=== PATIENT | female | born 1955 | race Caucasian/White ===

== ENCOUNTER 2022-12-22 08:51 | Emergency (ER) | payer OTHER, BC ==
[2022-12-22 09:21] VITALS: BMI 33.5
[2022-12-22] MEDS ORDERED: ACETAMINOPHEN 1000 MG/100 ML BAG IVPB ONE (09:57)
[2022-12-22 09:59] LABS: CALCIUM OXALATE CRYSTALS MODERATE /hpf (NONE SEEN); EPITHELIAL CELLS FEW /hpf
[2022-12-22] MEDS ORDERED: ACETAMINOPHEN INJECTION 100 ML IVPB ONE (10:00)
[2022-12-22 10:14] LABS: HEMOGLOBIN 14.3 G/dL (10.7-15.3); MEAN PLT VOLUME 9.2 fl (7.5-11.1); PLATELET COUNT 350.2 10^3/uL (134-434); RBC 4.62 10^6/uL (3.60-5.2); RDW 13.9 % (11.6-15.6); WHITE BLOOD COUNT 7.8 10^3/uL (4.0-10.8)
[2022-12-22 10:18] LABS: PLATELET ESTIMATE ADEQUATE
[2022-12-22 10:23] LABS: ALBUMIN 4.3 g/dl (3.4-5.0); BILIRUBIN,TOTAL 0.6 mg/dl (0.2-1); CALCIUM 9.9 mg/dl (8.5-10.1); CREATININE 0.9 mg/dl (0.6-1.3); SGOT/AST 18.2 U/L (15-37); SGPT/ALT 30.5 U/L (7-52); TOT PROT 7.2 g/dl (6.4-8.2)
[2022-12-22 11:50] VITALS: BP 128/85; PULSE 88; RESP 16; TEMP 97.7
[2022-12-22] MEDS ORDERED: CEPHALEXIN MONOHYDRATE 500 MG CAPSULE (UD) PO ONE (15:50)
[2022-12-22] MEDS ORDERED: CEPHALEXIN MONOHYDRATE 500 MG CAPSULE (UD) ONE (15:55)
== END 2022-12-22 16:00 | disposition home or self-care (01) ==
LOC: SUPCPDRO 08:51 → FER 08:51
PROC: 3E033NZ Introduction of Analgesics, Hypnotics, Sedatives into Peripheral Vein, Percutaneous Approach (ICD-10-PCS; principal; 2022-12-22)
DX: R10.32 Left lower quadrant pain (principal); R10.84 Generalized abdominal pain; N39.0 Urinary tract infection, site not specified
CPT/HCPCS: 36415; 74177-TC; 76830-TC; 80053; 81003; 81015; 83690; 85025; 87086; 99285-25; Q9967

== ENCOUNTER 2024-08-20 10:37 | Emergency (ER) | payer OTHER, BC ==
[2024-08-20 10:55] VITALS: BP 142/90; PULSE 82; RESP 18; TEMP 98.4; BMI 36.1
[2024-08-20] MEDS ORDERED: DIPHTH,PERTUSS(ACELL),TET 0.5 ML DISP.SYRIN IM ONE (12:01)
[2024-08-20] MEDS: DIPHTH,PERTUSS(ACELL),TET 0.5 ML DISP.SYRIN IM ONE (12:04)
== END 2024-08-20 12:15 | disposition home or self-care (01) ==
LOC: FER 10:37
PROC: 3E0234Z Introduction of Serum, Toxoid and Vaccine into Muscle, Percutaneous Approach (ICD-10-PCS; principal; 2024-08-20)
DX: S50.811A Abrasion of right forearm, initial encounter (principal); S80.811A Abrasion, right lower leg, initial encounter; M25.512 Pain in left shoulder; Z23 Encounter for immunization; W01.0XXA Fall on same level from slipping, tripping and stumbling without subsequent striking against object, initial encounter
CPT/HCPCS: 73030-TC-LT-FY; 90471; 90715; 99284-25

== ENCOUNTER 2024-12-31 10:02 | Emergency (ER) | payer OTHER, BC ==
[2024-12-31 10:15] VITALS: BP 134/87; PULSE 90; RESP 15; TEMP 98.1; BMI 35.9
[2024-12-31] MEDS ORDERED: IBUPROFEN 600 MG TABLET (FP) PO ONE (10:50)
[2024-12-31] MEDS: IBUPROFEN 600 MG TABLET (FP) PO ONE (10:51)
== END 2024-12-31 11:29 | disposition home or self-care (01) ==
LOC: FER 10:02
DX: M65.4 Radial styloid tenosynovitis [de Quervain] (principal); M77.8 Other enthesopathies, not elsewhere classified; R20.2 Paresthesia of skin
CPT/HCPCS: 73110-TC-RT-FY; 99283-25